=== PATIENT | male | born 1940 | race Caucasian/White ===

== ENCOUNTER 2018-02-07 14:50 | Emergency (ER) ==
[2018-02-07 14:56] VITALS: BP 167/78; TEMP 97.9; BMI 27.3
--- NOTE | 2018-02-07 15:13 | ED.PDOC ---
Medical Screening Exam - General Information Time Seen by Physician*: 03:05 Mode of Arrival: Walk-In Information Source: Patient - History Chief Complaint: Non-specific Complaint Stated Complaint: i am here to get ultrasound of my neck Severity: None - Review Of Systems Constitutional: None Respiratory: Reports: None GI: Reports: None : Reports: None Musculoskeletal: Reports: None Neuro: Reports: None - Past Medical History Past Medical History: Previously healthy - Examination Findings Visit Related to : No - Medical Decision Making Emergency Medical Condition: No Physical Exam - Physical Exam Appearance: Well-appearing, No pain distress, Well-nourished Ill-appearing: None Pain Distress: None Eyes: SANDEEP, EOMI, Conjunctiva clear (recent floaters in eyes but no pain, evaluated by PCP and Opto) ENT: Ears normal, Nose normal, Oropharynx normal Neck: Supple Respiratory: Airway patent, Breath sounds clear, Breath sounds equal, Respirations nonlabored Cardiovascular: RRR, Pulses normal, No rub, No murmur GI/: Soft, Nontender, No masses, Bowel sounds normal, No Organomegaly Musculoskeletal: Normal strength, ROM intact, No edema, No calf tenderness Skin: Warm, Dry, Normal color Neurological: Sensation intact, Motor intact, Reflexes intact, Cranial nerves intact, Alert, Oriented Interpretation - Radiology Interpretation Radiology Results: Negative Re-Evaluation - Re-Evaluation Time of Re-Evaluation: 16:00 Status: Unchanged Vital Signs Stable: Yes Appearance: NAD Lungs: Clear Skin: Warm and Dry Neuro: Alert and Oriented X3 CV: RRR Critical Care Note - Critical Care Note Total Time (mins): 0 Course - Course Orders, Labs, Meds: Orders Category Date Time Status ULTRASOUND DOPPLER CAROTID [U/S DOPPLER CAROTID] Stat RADS 02/07/18 15:13 Completed Vital Signs: Temp Pulse Resp BP Pulse Ox 02/07/18 14:51 97.9 F 72 16 167/78 H 94 L Departure - Departure Time of Disposition: 16:25 Disposition: HOME SELF-CARE Discharge Problem: Floaters Qualifiers: Laterality: bilateral Qualified Code(s): H43.393 - Other vitreous opacities, bilateral Condition: Good Pt referred to PMD for follow-up: Yes IPMP verified?: No Allergies/Adverse Reactions: Allergies No Known Allergies Allergy (Unverified 02/07/18 14:56) Home Medications: Ambulatory Orders Albuterol Sulfate [Proair Hfa] 2 puff IH Q6H 02/07/18 Aspirin [Aspirin EC] 81 mg PO DAILY 02/07/18 Atorvastatin Calcium 80 mg PO BEDTIME 02/07/18 Clonazepam 0.5 mg PO PRN PRN 02/07/18 Furosemide [Lasix] 40 mg PO BID 02/07/18 Hydrocodone/Acetaminophen [Hydrocodon-Acetaminoph 7.5-325] 1 each PO PRN PRN Ipratropium [place] [Atrovent Hfa] 2 puff IH QID 02/07/18 Isosorbide Mononitrate [Isosorbide Mononitrate ER] 60 mg PO DAILY 02/07/18 Metformin HCl 2 tab PO BEDTIME 02/07/18 Metoprolol Tartrate [Lopressor] 100 mg PO DAILY 02/07/18 Pantoprazole Sodium 40 mg PO BID 02/07/18 Potassium Chloride [K-Dur] 20 meq PO DAILY 02/07/18 Warfarin Sodium 2 mg PO EVERY OTHER DAY 02/07/18 Warfarin Sodium 3 mg PO EVERY OTHER DAY 02/07/18
--- NOTE | 2018-02-07 16:07 | US ---
EXAM: Ultrasound bilateral carotid duplex. HISTORY: Visual changes, floaters. Reported known severe carotid artery stenosis. COMPARISON: None available. TECHNIQUE: Multiple sanchez scale and color Doppler images were obtained. FINDINGS: Please note that estimates of internal carotid artery stenoses are based upon NASCET crite michelle. Right carotid: Calcified plaquing present in the carotid bulb extending into the internal carotid ar marilyn which causes at least 50% stenosis. Peak systolic velocity measurement in the right internal ca rotid artery is 3.7 meters per second. Right internal to common carotid artery peak systolic velocit y ratio measures 6.1. End diastolic velocity measurement in the right internal carotid artery is 1.0 meters per second. Flow in the right vertebral artery is antegrade. Left carotid: Calcified plaquing present, greatest in the carotid bulb extending into the proximal i nternal carotid artery causing at least 50% stenosis. Peak systolic velocity measurement in the left internal carotid artery is 2.2 meters per second. Left internal to common carotid artery peak systo lic velocity ratio measures 2.8. End diastolic velocity measurement in the left internal carotid art sally measures 0.5 meters per second. Flow in the left vertebral artery is not identified. IMPRESSION: 1. Velocity measurements suggest severe, 70% or greater, right internal carotid artery stenosis. 2. Velocity measurements suggest moderate, 50-69%, left internal carotid artery stenosis. 3. Nonvisualized left vertebral artery could be technical. Stenosis or occlusion of the left verteb ral artery is not excluded. 4. Antegrade flow in the right vertebral artery.
== END 2018-02-07 16:35 | disposition home or self-care (01) ==
LOC: ED 14:50
DX: H43.393 Other vitreous opacities, bilateral (principal)
CPT/HCPCS: 99283

== ENCOUNTER 2018-02-12 06:51 | Outpatient (CLI) ==
--- NOTE | 2018-02-12 10:44 | CT ---
EXAM: CTA of the neck with and without contrast History: Bilateral carotid stenosis. Comparison: Carotid Doppler 02/07/2018 Technique: Multiplanar CT images through the bilateral internal carotid arteries were obtained. Col or duplex Doppler was used to interrogate vascular flow. MIP images and 3-D reconstructions were also acquired. Findings: The visualized upper lungs are free of consolidation. Calcified granulomas are seen within the mediastinum. No parotid inflammation or parotid masses. Submandibular glands are not inflamed. No air-fluid levels are seen within the sinuses or mastoid air cells. No acute osseous abnormaliti es. Degenerative changes of the cervical spine. Epiglottis is not thickened. No prevertebral soft tissue swelling. The visualized intracranial contents demonstrate no acute findings. The right vertebral artery is lar kalani than the left which is most likely a normal variant. There is atherosclerotic plaque seen involv ing both vertebral arteries but no severe stenosis is identified. There is mild to moderate plaque bu ildup within both subclavian arteries but no severe stenosis. Mild to moderate plaque buildup within both common carotid arteries but no significant stenosis. Within left carotid bifurcation and carotid bulb, there is significant calcific plaque buildup which moderate to severely narrows the proximal left internal carotid artery up to at least 80%. The more d istal left internal carotid artery is only mildly narrowed with calcific plaque. In the right carotid bifurcation and proximal right internal carotid artery, there is moderate calcif ic plaque buildup causing about 60% narrowing. The more distal right internal carotid artery is only mildly narrowed with calcific plaque. Impression: 1. Moderate to severe stenosis of the proximal left internal carotid artery. 2. Moderate stenosis of the proximal right internal carotid artery.
== END 2018-02-12 06:52 | disposition home or self-care (01) ==
LOC: RAD 06:51
PROVIDERS: ATTEND Internal Medicine
DX: G45.9 Transient cerebral ischemic attack, unspecified (principal); I65.29 Occlusion and stenosis of unspecified carotid artery
CPT/HCPCS: 36415; 82565

== ENCOUNTER 2023-06-24 14:36 | Inpatient (IN) ==
[2023-06-24 15:15] VITALS: BMI 23.6
[2023-06-24] MEDS ORDERED: TYLENOL PO PRN (15:49)
[2023-06-24] MEDS ORDERED: NITROSTAT SL PRN (15:49)
[2023-06-24] MEDS ORDERED: ATROPINE SULFATE PFS IVP PRN (15:49)
[2023-06-24] MEDS ORDERED: LASIX IVP ONE (15:51)
[2023-06-24] MEDS ORDERED: ULTRAM PO PRN (15:58)
[2023-06-24] MEDS ORDERED: VENTOLIN HFA IH SCH (16:00)
[2023-06-24] MEDS ORDERED: NON-FORMULARY MEDICATION (Ferrous Sulfate 325 mg (65 mg iron) tablet) PO SCH (16:00)
[2023-06-24 16:18] LABS: ALANINE AMINOTRANSFERASE 57.7 U/L (0-50); ALBUMIN 3.86 g/dL (3.5-5.0); ASPARTATE AMINO TRANSFERASE 42.4 U/L (17-59); BILIRUBIN,TOTAL 1.25 mg/dL (0.2-1.3); BLOOD UREA NITROGEN 25.6 mg/dL (9-20); CALCIUM 8.31 mg/dL (8.4-10.2); CHLORIDE 96.2 mmol/L (98-107); CREATININE 1.4 mg/dL (0.60-1.10); GLUCOSE 141.9 mg/dL (74-106); POTASSIUM 2.98 mmol/L (3.5-5.1); SODIUM 134.1 mmol/L (134.5-145); TOTAL PROTEIN 7.11 g/dL (6.3-8.2)
[2023-06-24 16:28] LABS: BASOPHILS # (AUTO) 0.1 K/uL (0-0.2); EOSINOPHILS # (AUTO) 0.1 K/ul (0.0-0.7); EOSINOPHILS % (AUTO) 1.9 % (0.0-7.0); HEMATOCRIT 32.1 % (42.0-52.0); HEMOGLOBIN 9.6 g/dl (14.0-18.0); IMMATURE GRANULOCYTE % (AUTO) 0.2 % (0.0-5.0); LYMPHOCYTES # (AUTO) 1.2 K/uL (0.60-3.4); LYMPHOCYTES % (AUTO) 21.1 (10.0-50.0); MEAN CORPUSCULAR HEMOGLOBIN 24.5 pg (27.0-31.0); MEAN CORPUSCULAR HGB CONC 29.9 (31.8-35.4); MEAN CORPUSCULAR VOLUME 81.9 fl (80.0-94.0); MONOCYTES # (AUTO) 0.9 K/uL (0.4-2.0); MONOCYTES % (AUTO) 14.8 (0-10); NEUTROPHILS # (AUTO) 3.6 K/ul (2.0-6.9); PLATELET COUNT 181 10^3/uL (140-440); RDW COEFFICIENT OF VARIATION 21.6 % (11.6-14.8); RED BLOOD COUNT 3.92 10^6/ul (4.70-6.10); WHITE BLOOD COUNT 5.87 K/ul (4.2-10.2)
[2023-06-24] MEDS: ROCEPHIN 1 GM/50 ML D5W 1 GM/50 ML BAG IV SCH (16:58)
--- NOTE | 2023-06-24 16:58 | DI ---
EXAM: CHEST RADIOGRAPH TECHNIQUE: Single frontal chest radiograph. HISTORY: Dyspnea COMPARISON: 04/03/2022 FINDINGS: The lungs are clear. Cardiomegaly. Midline sternotomy. Left-sided pacemaker. IMPRESSION: 1. Cardiomegaly, no acute disease
[2023-06-24] MEDS ORDERED: ATROVENT HFA INHALER IH SCH (17:00)
[2023-06-24] MEDS ORDERED: K-DUR PO STA (17:01)
[2023-06-24 17:10] LABS: BILIRUBIN,URINE Negative (NEGATIVE); CLARITY,URINE Clear (CLEAR); COLOR,URINE Yellow (YELLOW); GLUCOSE, URINE (UA) Negative (NEGATIVE); KETONES,URINE Negative (NEGATIVE); LEUKOCYTE ESTERASE ,URINE Negative (NEGATIVE); NITRITE,URINE Negative (NEGATIVE); PH,URINE 6.5 (5-9); PROTEIN,URINE Negative (NEGATIVE); URINE, BLOOD Negative (NEGATIVE); UROBILINOGEN,URINE 0.2 (0.2)
[2023-06-24] MEDS ORDERED: VENTOLIN HFA IH PRN (17:10)
[2023-06-24] MEDS: PROTONIX PO SCH (17:13)
[2023-06-24] MEDS ORDERED: NORCO 7.5-325 ONE (17:18)
[2023-06-24] MEDS ORDERED: K-DUR ONE (17:21)
[2023-06-24] MEDS ORDERED: ATROVENT HFA INHALER IH PRN (18:33)
[2023-06-24] MEDS: DOXY-100 100 MG in SODIUM CHLORIDE 100ML 100 ML IV SCH (20:22)
[2023-06-24] MEDS: KLONOPIN PO SCH (20:23)
[2023-06-24] MEDS: LIPITOR PO SCH (20:24)
[2023-06-24] MEDS: ELIQUIS PO SCH (20:24)
[2023-06-24] MEDS: BACTROBAN TP SCH (20:25)
[2023-06-24] MEDS ORDERED: NORCO 7.5-325 PO SCH (21:00)
[2023-06-24] MEDS ORDERED: K-DUR PO ONE (21:00)
[2023-06-25 05:38] LABS: BASOPHILS % (AUTO) 0.8 % (0.0-3.0); EOSINOPHILS # (AUTO) 0.2 K/ul (0.0-0.7); EOSINOPHILS % (AUTO) 3.7 % (0.0-7.0); HEMATOCRIT 29.6 % (42.0-52.0); HEMOGLOBIN 8.8 g/dl (14.0-18.0); IMMATURE GRANULOCYTE % (AUTO) 0.2 % (0.0-5.0); LYMPHOCYTES # (AUTO) 1.1 K/uL (0.60-3.4); LYMPHOCYTES % (AUTO) 21.5 (10.0-50.0); MEAN CORPUSCULAR HEMOGLOBIN 24.1 pg (27.0-31.0); MEAN CORPUSCULAR HGB CONC 29.7 (31.8-35.4); MEAN CORPUSCULAR VOLUME 81.1 fl (80.0-94.0); MONOCYTES # (AUTO) 0.9 K/uL (0.4-2.0); MONOCYTES % (AUTO) 18.1 (0-10); NEUTROPHILS # (AUTO) 2.9 K/ul (2.0-6.9); NEUTROPHILS % (AUTO) 55.7 % (42.2-75.2); PLATELET COUNT 151 10^3/uL (140-440); RDW COEFFICIENT OF VARIATION 21.4 % (11.6-14.8); RED BLOOD COUNT 3.65 10^6/ul (4.70-6.10)
[2023-06-25 05:50] LABS: ALANINE AMINOTRANSFERASE 50.5 U/L (0-50); ALBUMIN 3.33 g/dL (3.5-5.0); ALKALINE PHOSPHATASE 130.7 U/L (56-119); ASPARTATE AMINO TRANSFERASE 43.6 U/L (17-59); BILIRUBIN,TOTAL 0.93 mg/dL (0.2-1.3); BLOOD UREA NITROGEN 25.6 mg/dL (9-20); CALCIUM 8.09 mg/dL (8.4-10.2); CHLORIDE 99.3 mmol/L (98-107); CREATININE 1.49 mg/dL (0.60-1.10); GLUCOSE 135.1 mg/dL (74-106); POTASSIUM 3.72 mmol/L (3.5-5.1); SODIUM 136.4 mmol/L (134.5-145); TOTAL PROTEIN 6.22 g/dL (6.3-8.2)
[2023-06-25] MEDS: PROTONIX PO SCH ×2 (05:57→17:31)
[2023-06-25] MEDS ORDERED: K-DUR PO SCH ×2 (08:00→08:30)
[2023-06-25] MEDS: ZESTRIL PO SCH (08:21)
[2023-06-25] MEDS: TOPROL XL PO SCH (08:21)
[2023-06-25] MEDS: K-DUR PO SCH (08:21)
[2023-06-25] MEDS: IMDUR PO SCH (08:21)
[2023-06-25] MEDS: ELIQUIS PO SCH ×2 (08:22→21:10)
[2023-06-25] MEDS: ROCEPHIN 1 GM/50 ML D5W 1 GM/50 ML BAG IV SCH (08:22)
[2023-06-25] MEDS: FERROUS SULFATE PO SCH ×2 (08:22→21:09)
--- NOTE | 2023-06-25 08:37 | PCM.PROG ---
Attending Provider: ATTENDING PROVIDER: Dr. ТАТЬЯНА ANN MD This patient is seen with Moraima Wilkins, Nurse Practitioner. DATE OF SERVICE: 06/25/23 SUBJECTIVE: This 82 year old /WHITE M was hospitalized 06/24/23.Leg edema slightly improved, worsened area of redness on feet. Labs showed Potassium has improved to 3.7, Hgb down to 8.8. He has chronic anemia. REVIEW OF SYSTEMS: CONSTITUTIONAL: No night sweats. No fatigue, malaise, lethargy. No fever or chills. Weakness. HEENT: Eyes: No visual changes. No eye pain. No eye discharge. ENT: No runny nose. No epistaxis. No sinus pain. No odynophagia. No congestion. RESPIRATORY: No cough, no congestion. No hemoptysis. No shortness of breath. CARDIOVASCULAR: No angina symptoms. No CHF symptoms. No atypical chest pain for CAD. No palpitations. No orthopnea.. GASTROINTESTINAL: No abdominal pain. No nausea or vomiting. No diarrhea or constipation. No hematemesis. No hematochezia. GENITOURINARY: No urgency. No frequency. No dysuria. No hematuria. No obstructive symptoms. No discharge. No pain. No significant abnormal bleeding. MUSCULOSKELETAL: No musculoskeletal pain; no joint swelling. Leg edema. NEUROLOGICAL: Awake, alert, oriented to time, place and person. No headache. No neck pain. No syncope. No seizures. No dizziness. PSYCHIATRIC: Not anxious. No depression. No suicidal thoughts. No homicidal thoughts. SKIN: No rash. No lesions. No wounds. Pallor. Foot ulcers. ENDOCRINE: No unexplained weight loss. No weight gain. HEMATOLOGIC/LYMPHATIC: No anemia. No purpura. No petechiae. No prolonged or excessive bleeding. No palpable lymph nodes. PHYSICAL EXAMINATION: GENERAL: The patient is awake, alert and oriented, lying in bed in no distress. VITAL SIGNS: Temperature 97.6 F, Pulse 60, Respiratory Rate 16, BP 117/62, Pulse Ox 99% HEENT: Head normocephalic, atraumatic. Eyes: Extraocular muscles are intact. Pupils are equal, round and reactive to light and accommodation. Ears: No lesions. Nose appeared normal. Throat: No exudate or erythema. NECK: Supple. No JVD, no carotid bruit. No lymphadenopathy or thyromegaly. LUNGS: Diminished breath sounds. Clear to auscultation. Percussion note normal. Chest symmetrical. HEART: Irregular heart rate. S1, S2, no S3. No murmurs. No cyanosis or clubbing. No ascites. Pulses: Dorsalis pedis and posterior tibial pulses +1 to +2 both sides. ABDOMEN: Soft. Non-tender. Bowel sounds active. No CVA tenderness. No mass felt. EXTREMITIES: +1 edema left lower extremity. Trace right lower extremity edema. Full range of motion of all extremities, equal. NEUROLOGIC: No focal deficit. Cranial nerves II through XII are grossly intact. No headache. No double vision. SKIN: Not dry. Intact. Turgor-normal. Pale. Multiple open areas to both feet with minimal surround erythema and clear drainge. LYMPHATIC: No palpable lymph nodes/no lymphedema. MUSCULOSKELETAL: Normal joints with no swelling. Muscle tone is normal. LAB REVIEW: 06/25/23 05:11 06/25/23 05:11 06/25/23 05:11: WBC 5.20, RBC 3.65 L, Hgb 8.8 L, Hct 29.6 L, MCV 81.1, MCH 24.1 L, MCHC 29.7 L, RDW Coeff of Janet 21.4 H, Plt Count 151, Immature Gran % (Auto) 0.2, Neut % (Auto) 55.7, Lymph % (Auto) 21.5, [place] % (Auto) 18.1 H, Eos % (Auto) 3.7, Baso % (Auto) 0.8, Neut # (Auto) 2.9, Lymph # (Auto) 1.1, [place] # (Auto) 0.9, Eos # (Auto) 0.2, Baso # (Auto) 0.0, Immature Gran # (Auto) 0.0, Sodium 136.4, Potassium 3.72, Chloride 99.3, Carbon Dioxide 31.0 H, Anion Gap 9.82, BUN 25.6 H, Creatinine 1.49 H, Estimated GFR (MDRD) 45.00, BUN/Creatinine Ratio 17.18, Glucose 135.1 H, Calcium 8.09 L, Total Bilirubin 0.93, AST 43.6, ALT 50.5 H, Alkaline Phosphatase 130.7 H, Total Protein 6.22 L, Albumin 3.33 L, Globulin 2.89, Albumin/Globulin Ratio 1.15 06/24/23 16:26: Urine Color Yellow, Urine Clarity Clear, Urine pH 6.5, Ur Specific [place] 1.010, Urine Protein Negative, Urine Glucose (UA) Negative, Urine Ketones Negative, Urine Blood Negative, Urine Nitrite Negative, Urine Bilirubin Negative, Urine Urobilinogen 0.2, Ur Leukocyte Esterase Negative 06/24/23 16:03: WBC 5.87, RBC 3.92 L, Hgb 9.6 L, Hct 32.1 L, MCV 81.9, MCH 24.5 L, MCHC 29.9 L, RDW Coeff of Janet 21.6 H, Plt Count 181, Immature Gran % (Auto) 0.2, Neut % (Auto) 61.0, Lymph % (Auto) 21.1, [place] % (Auto) 14.8 H, Eos % (Auto) 1.9, Baso % (Auto) 1.0, Neut # (Auto) 3.6, Lymph # (Auto) 1.2, [place] # (Auto) 0.9, Eos # (Auto) 0.1, Baso # (Auto) 0.1, Immature Gran # (Auto) 0.0, Sodium 134.1 L, Potassium 2.98 L, Chloride 96.2 L, Carbon Dioxide 29.0, Anion Gap 11.88, BUN 25.6 H, Creatinine 1.40 H, Estimated GFR (MDRD) 49.00, BUN/Creatinine Ratio 18.28, Glucose 141.9 H, Calcium 8.31 L, Total Bilirubin 1.25, AST 42.4, ALT 57.7 H, Alkaline Phosphatase 133.0 H, Total Protein 7.11, Albumin 3.86, Globulin 3.25, Albumin/Globulin Ratio 1.18 ASSESSMENT: Please see below. 1. Bilateral leg edema 2. Bilateral lower extremity cellulitis 3. Anemia 4. Chronic kidney disease stage 3 5. Hypokalemia, improved PLAN: 1. Lasix 40mg daily PO starting tomorrow 2. Hold Lasix today 3. Potassium 20meq daily 4. Keep legs elevated 5. Continue IV antibiotics 6. Wound cultures, pending. Plan and coordination of the patient's care discussed in the presence of Home Mortgage Disclosure Act Specialist and nurse. SCRIBED BY: Darius ROSADO scribed while in presence of service performed by Moraima Wilkins APRN on 06/25/23 ([id number])
[2023-06-25] MEDS: BACTROBAN TP SCH ×2 (08:38→21:19)
[2023-06-25] MEDS ORDERED: FERROUS SULFATE PO SCH (09:00)
[2023-06-25] MEDS: DOXY-100 100 MG in SODIUM CHLORIDE 100ML 100 ML IV SCH ×2 (09:26→21:14)
--- NOTE | 2023-06-25 11:15 | RS.PTINEVL ---
Subjective Patient information Date of Evaluation: 06/25/23 Date of Arrival on Unit: 06/24/23 Admitted From:: Home Diagnosis: Cellulitis, edema BLE, difficulty walking, Usual Living Arrangement: Alone Home Environment: House, Stairs (few) (3 steps to enter) and Rail Medical History: CVA/TIA (TIA), Diabetes and Arthritis Medical History Comments:: CKD, AFib, LATEX ALLERGY?: No Surgical History: CABG Surgical History Comments:: pacemaker Medications: see chart Subjective Information/ Patient Comments:: pt states that he is hurting in his feet due to blisters and edema. pt reports he wants to try to walk to the bathroom. 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 pt was independent taking care of his house and himself. Current Level of Function: Partially Dependent Current Equipment Used at Home: wheelchair, shower chair Pain Assessement Location B feet : Description: Burning, Sharp and Acute Pain Behavior: Facial Grimacing Pain Aggravating Factors: Changing Position, Standing and Walking Pain Alleviating Factors: Position Change Interventions Objective Patient Orientation: Person, Place, Time and Situation Current Interventions: IV's and Telemetry Observation: pt with multiple blisters some intact some open B feet as well as pitting edema BLE. Range of Motion ROM Right Upper Extremity AROM: WFL's Left Upper Extremity AROM: WFL's Right Lower Extremity AROM: Slight limitation (slight limitation with ankle ROM due to pain.) Left Lower Extremity AROM: Slight limitation (slight limitation in ankle ROM due to edema and pain) Muscle Strength Muscle Strength Right Upper Extremity: Mild Weakness (grossly 4/5) Left Upper Extremity: Mild Weakness (grossly 4/5 ) Right Lower Extremity: Mild Weakness (hip flex 4/5, knee flex/ext 4/5, ankle DF/PF 4-/5) Left Lower Extremity: Mild Weakness (hip flex 4/5, knee flex/ext 4/5, ankle DF/PF 4-/5) Sensation Sensation Right Upper Extremity: Intact/Normal Left Upper Extremity: Intact/Normal Right Lower Extremity: Intact/Normal Left Lower Extremity: Intact/Normal Palpation Palpation Findings: None/Normal Balance Sitting Balance and Reactions Static Sitting Balance: Good Dynamic Sitting Balance: Good Standing Balance and Reactions Static Standing Balance: Poor Dynamic Standing Balance: Poor Comments Balance Assessment Comments: pt stands and amb with flexed knees due to pain in B feet. Functional Mobility Bed Mobility Rolling R/L: Independent Supine to Sit: Supervision Sit to Supine: Supervision Transfers Sit to Stand: Min Assist Stand to Sit: CGA Safety Awareness Safety Awareness: Fair JEANNETTE INDEX SCORE: n/a Ambulation Ambulation Weight Bearing Status: WBAT Assistive Device Used: Rolling Walker Orthotic/Prosthetic Device: No Distance: 14ft x 2 Assistance needed with Ambulation: CGA and Min Assist Gait Deviations: Step-to gait, Forward posture and Short stride Ambulation Comments: flexed knees Factors Affecting Ambulation: Decreased Balance, Pain, Weakness, Decreased ROM, Decreased Safety and Limited Endurance Treatment time Units charged ADL: 1 (ther act ) Time with patient Length of Evaluation: 19 Total treatment time: 29 Patient Education Education Patient Education: Activity Modification and Education of Plan of Care Teaching Recipient: Patient Teaching Methods: Discussion (discussion regarding POC as well as safety with amb.) Assessment Assessment Problem List:: Decreased level of function, Requires training/education, Decreased safety/Risk of falls, Weakness and Pain limits previous level of function Rehab Potential: Good Further Therapy Indicated?: Yes Candidate for Swing Bed for Therapy Services?: Feel pt may be at a higher functional level soon, limited mostly due to wounds on feet. Evaluation Complexity: HISTORY: Medium, EXAM OF BODY SYSTEMS: Medium, CLINICAL PRESENTATION: Medium and CLINICAL DECISION MAKING: Medium Patient's Goal(s): The wounds on my legs to heal and to go home. Short Term Goals GOAL #1: pt demonstrate rolling and scooting in bed independently. Goal to be met by: 06/27/23 GOAL #2: Transfer sup to/from sit independently Goal to be met by: 06/27/23 GOAL #3: Transfer sit to/from stand SBA Goal to be met by: 06/27/23 GOAL #4: pt amb with rwx 50ft with CGA no LOB. Goal to be met by: 06/27/23 GOAL #5: Improve BLE strength 4+/5 Goal to be met by: 06/27/23 Fdc Goals GOAL #1: pt independent sit to/from stand independently. Goal to be met by: 06/29/23 GOAL #2: pt amb functional household distances with rolling walker independently. Goal to be met by: 06/29/23 GOAL #3: Improve dyn stand balance fair Goal to be met by: 06/29/23 Plan Plan of Care: Therapeutic EX and Therapeutic Activity Other:: gait training Frequency of Treatment: 1-2 X day, as tolerated Duration of Treatment: 4-5 days Anticipated Discharge Destination: Home Treatment Diagnosis (ICD 10 Codes): BLE edema gait difficulty R 26.2 impaired balance R 26.81 weakness M62.81 Has the Physician been added for Co-signature?: Yes
[2023-06-25] MEDS: LIPITOR PO SCH (21:08)
[2023-06-25] MEDS: KLONOPIN PO SCH (21:09)
[2023-06-25] MEDS: NORCO 7.5-325 PO PRN (21:43)
[2023-06-26 05:13] LABS: BASOPHILS % (AUTO) 0.5 % (0.0-3.0); EOSINOPHILS # (AUTO) 0.1 K/ul (0.0-0.7); EOSINOPHILS % (AUTO) 1.9 % (0.0-7.0); HEMATOCRIT 27.6 % (42.0-52.0); HEMOGLOBIN 8.3 g/dl (14.0-18.0); IMMATURE GRANULOCYTE % (AUTO) 0.2 % (0.0-5.0); LYMPHOCYTES # (AUTO) 1.4 K/uL (0.60-3.4); LYMPHOCYTES % (AUTO) 22.7 (10.0-50.0); MEAN CORPUSCULAR HEMOGLOBIN 24.6 pg (27.0-31.0); MEAN CORPUSCULAR HGB CONC 30.1 (31.8-35.4); MEAN CORPUSCULAR VOLUME 81.7 fl (80.0-94.0); MONOCYTES % (AUTO) 15.6 (0-10); NEUTROPHILS # (AUTO) 3.7 K/ul (2.0-6.9); NEUTROPHILS % (AUTO) 59.1 % (42.2-75.2); PLATELET COUNT 165 10^3/uL (140-440); RDW COEFFICIENT OF VARIATION 21.2 % (11.6-14.8); RED BLOOD COUNT 3.38 10^6/ul (4.70-6.10); WHITE BLOOD COUNT 6.33 K/ul (4.2-10.2)
[2023-06-26] MEDS: LASIX TAB PO SCH (05:51)
[2023-06-26 06:00] LABS: ALANINE AMINOTRANSFERASE 43.2 U/L (0-50); ALBUMIN 3.19 g/dL (3.5-5.0); ALKALINE PHOSPHATASE 127.3 U/L (56-119); BILIRUBIN,TOTAL 1.07 mg/dL (0.2-1.3); BLOOD UREA NITROGEN 31.2 mg/dL (9-20); CALCIUM 8.31 mg/dL (8.4-10.2); CARBON DIOXIDE 27.7 mmol/L (22-30.0); CHLORIDE 99.4 mmol/L (98-107); CREATININE 1.72 mg/dL (0.60-1.10); GLUCOSE 112.6 mg/dL (74-106); POTASSIUM 4.46 mmol/L (3.5-5.1); SODIUM 132.7 mmol/L (134.5-145); TOTAL PROTEIN 5.98 g/dL (6.3-8.2)
[2023-06-26] MEDS: PROTONIX PO SCH ×2 (06:00→17:25)
[2023-06-26] MEDS: IMDUR PO SCH (08:16)
[2023-06-26] MEDS: BACTROBAN TP SCH ×2 (08:16→20:51)
[2023-06-26] MEDS: ROCEPHIN 1 GM/50 ML D5W 1 GM/50 ML BAG IV SCH (08:16)
[2023-06-26] MEDS: ELIQUIS PO SCH ×2 (08:17→20:39)
[2023-06-26] MEDS: K-DUR PO SCH (08:17)
[2023-06-26] MEDS: FERROUS SULFATE PO SCH ×2 (08:17→20:38)
[2023-06-26] MEDS: NORCO 7.5-325 PO PRN ×2 (08:18→20:56)
[2023-06-26] MEDS: ZESTRIL PO SCH (08:18)
[2023-06-26] MEDS: TOPROL XL PO SCH (08:18)
[2023-06-26] MEDS: DOXY-100 100 MG in SODIUM CHLORIDE 100ML 100 ML IV SCH ×2 (08:57→20:43)
[2023-06-26] MEDS ORDERED: DECADRON IM ONE (12:32)
--- NOTE | 2023-06-26 14:19 | PN ---
DATE OF SERVICE: 06/25/23 SUBJECTIVE: The patient was seen and examined with the Nurse Practitioner. The patient's condition seems to be improving, less redness on the left foot. Blisters have all collapsed and trying to dry up. Edema is much less. Cardiovascular status is stable. l TIME SPENT: More than 35 minutes. Plan and coordination of the patient's care discussed in the presence of nurse. ELROY
--- NOTE | 2023-06-26 14:30 | PN ---
DATE OF SERVICE: 06/26/23 SUBJECTIVE: 82 year old white male hospitalized with bilateral leg edema and cellulitis with blisters. The patient's condition seems to be improving. Most of the blisters are collapsed and they are getting dried up. Left foot cellulitis seems to be under control, less than what is was on admission. The patient has arthritis pain in the knees, 1cc Decadron and two Tylenol. REVIEW OF SYSTEMS: CONSTITUTIONAL: No night sweats. No fatigue, malaise, lethargy. No fever or chills. HEENT: Eyes: No visual changes. No eye pain. No eye discharge. ENT: No runny nose. No epistaxis. No sinus pain. No sore throat. No odynophagia. No congestion. RESPIRATORY: No cough, no congestion. No hemoptysis. No shortness of breath. CARDIOVASCULAR: No angina symptoms. No CHF symptoms. No atypical chest pain for CAD. No palpitations. No PND. No orthopnea. GASTROINTESTINAL: No abdominal pain. No nausea or vomiting. No diarrhea or constipation. No hematemesis. No hematochezia. GENITOURINARY: No urgency. No frequency. No dysuria. No hematuria. No obstructive symptoms. No discharge. No pain. No significant abnormal bleeding. MUSCULOSKELETAL: No musculoskeletal pain; no joint swelling. NEUROLOGICAL: No headache. No neck pain. No syncope. No seizures. No dizziness. PSYCHIATRIC: Not anxious. No depression. No suicidal thoughts. No homicidal thoughts. SKIN: No rash. No lesions. No wounds. ENDOCRINE: No unexplained weight loss. No weight gain. HEMATOLOGIC/LYMPHATIC: No anemia. No purpura. No petechiae. No prolonged or excessive bleeding. No palpable lymph nodes. PHYSICAL EXAMINATION: VITAL SIGNS: Temperature 97.7, pulse 82, respiratory rate 16, blood pressure 106/54 and pulse ox 96% HEENT: Head normocephalic, atraumatic. Eyes: Extraocular muscles are intact. Pupils are equal, round and reactive to light and accommodation. Ears: No lesions. Nose appeared normal. Throat: No exudate or erythema. NECK: Supple. No JVD, no carotid bruit. No lymphadenopathy or thyromegaly. LUNGS: Decreased breath sounds but clear to auscultation. Percussion note normal. Chest symmetrical. HEART: S1, S2, no S3. No murmurs. No cyanosis or clubbing. No ascites. Pulses: Dorsalis pedis and posterior tibial pulses +1 to +2 bilaterally. ABDOMEN: Soft. Nontender. Bowel sounds active. No CVA tenderness. No mass felt. EXTREMITIES: No edema. Full range of motion of all extremities, equal. NEUROLOGIC: No focal deficit. Cranial nerves II through XII are grossly intact. No headache. No double vision. SKIN: Not dry. Intact. Turgor - normal. LYMPHATIC: No palpable lymph nodes/no lymphedema. MUSCULOSKELETAL: Normal joints with no swelling. Muscle tone is normal. LABS: Hgb 8.3, hct 27, WBC 6,300 normal differential, creatinine 1.7, BUN 31, potassium 4.4 ASSESSMENT: 1. Left foot cellulitis seems to be improving 2. Blisters with ulcers both seems to be drying up. PLAN: 1. Advised Wound Care in [place] area which he has declined. May have to put him on Wound Care at [place] if he doesn't agree to that then we will talk to him 2. Continue antibiotics 3. Elevate the legs. 4. 1cc Decadron with two Tylenol for arthritis pain in the knee. TIME SPENT: More than 35 minutes. Plan and coordination of the patient's care discussed in the presence of nurse. ELROY
[2023-06-26] MEDS: LIPITOR PO SCH (20:38)
[2023-06-26] MEDS: KLONOPIN PO SCH (20:40)
[2023-06-27] MEDS: LASIX TAB PO SCH (05:57)
[2023-06-27] MEDS: PROTONIX PO SCH ×2 (05:57→17:26)
[2023-06-27 07:09] LABS: BASOPHILS % (AUTO) 0.2 % (0.0-3.0); EOSINOPHILS % (AUTO) 0.3 % (0.0-7.0); HEMATOCRIT 26.9 % (42.0-52.0); HEMOGLOBIN 8.2 g/dl (14.0-18.0); IMMATURE GRANULOCYTE % (AUTO) 0.2 % (0.0-5.0); LYMPHOCYTES # (AUTO) 0.6 K/uL (0.60-3.4); LYMPHOCYTES % (AUTO) 10.1 (10.0-50.0); MEAN CORPUSCULAR HEMOGLOBIN 24.6 pg (27.0-31.0); MEAN CORPUSCULAR HGB CONC 30.5 (31.8-35.4); MEAN CORPUSCULAR VOLUME 80.5 fl (80.0-94.0); MONOCYTES # (AUTO) 0.8 K/uL (0.4-2.0); MONOCYTES % (AUTO) 11.9 (0-10); NEUTROPHILS # (AUTO) 4.9 K/ul (2.0-6.9); NEUTROPHILS % (AUTO) 77.3 % (42.2-75.2); PLATELET COUNT 152 10^3/uL (140-440); RED BLOOD COUNT 3.34 10^6/ul (4.70-6.10); WHITE BLOOD COUNT 6.31 K/ul (4.2-10.2)
[2023-06-27 07:26] LABS: ALANINE AMINOTRANSFERASE 38.2 U/L (0-50); ALBUMIN 3.14 g/dL (3.5-5.0); ALKALINE PHOSPHATASE 130.3 U/L (56-119); ASPARTATE AMINO TRANSFERASE 36.6 U/L (17-59); BILIRUBIN,TOTAL 0.98 mg/dL (0.2-1.3); BLOOD UREA NITROGEN 33.9 mg/dL (9-20); CALCIUM 8.27 mg/dL (8.4-10.2); CREATININE 1.49 mg/dL (0.60-1.10); GLUCOSE 148.1 mg/dL (74-106); POTASSIUM 4.78 mmol/L (3.5-5.1); SODIUM 129.2 mmol/L (134.5-145); TOTAL PROTEIN 5.97 g/dL (6.3-8.2)
[2023-06-27 07:56] LABS: ANISOCYTOSIS 2+ (NOT PRESENT); HYPOCHROMASIA 2+ (NOT PRESENT); MICROCYTOSIS 2+ (NOT PRESENT)
[2023-06-27 07:57] LABS: ACANTHOCYTES 2+ (NOT PRESENT)
[2023-06-27] MEDS: K-DUR PO SCH (08:17)
[2023-06-27] MEDS: IMDUR PO SCH (08:17)
[2023-06-27] MEDS: TOPROL XL PO SCH (08:17)
[2023-06-27] MEDS: BACTROBAN TP SCH ×2 (08:18→20:42)
[2023-06-27] MEDS: FERROUS SULFATE PO SCH ×2 (08:18→20:40)
[2023-06-27] MEDS: ZESTRIL PO SCH (08:18)
[2023-06-27] MEDS: ELIQUIS PO SCH ×2 (08:19→20:40)
[2023-06-27] MEDS: VANCOMYCIN 1.25 GM/250 ML BAG 1.25 GM/250 ML BAG IV SCH (08:27)
--- NOTE | 2023-06-27 08:49 | PCM.PROG ---
Attending Provider: ATTENDING PROVIDER: Dr. ТАТЬЯНА ANN MD This patient is seen with Moraima Wilkins, Nurse Practitioner. DATE OF SERVICE: 06/27/23 SUBJECTIVE: This 82 year old /WHITE M was hospitalized 06/24/23. Swelling of the feet has improved. Still with significant erythema around open areas on both feet. Wound cultures are back and positive for Staph Epidermidis and Staph Haemo lyticus both sensitive to Vancomycin. He is afebrile. He is still in significant pain. Wants to go home but agreed to stay one more day. REVIEW OF SYSTEMS: CONSTITUTIONAL: No night sweats. No fatigue, malaise, lethargy. No fever or chills. HEENT: Eyes: No visual changes. No eye pain. No eye discharge. ENT: No runny nose. No epistaxis. No sinus pain. No odynophagia. No congestion. RESPIRATORY: No cough, no congestion. No hemoptysis. No shortness of breath. CARDIOVASCULAR: No angina symptoms. No CHF symptoms. No atypical chest pain for CAD. No palpitations. No orthopnea.. GASTROINTESTINAL: No abdominal pain. No nausea or vomiting. No diarrhea or constipation. No hematemesis. No hematochezia. GENITOURINARY: No urgency. No frequency. No dysuria. No hematuria. No obs tructive symptoms. No discharge. No pain. No significant abnormal bleeding. MUSCULOSKELETAL: No musculoskeletal pain; no joint swelling. Leg edema. NEUROLOGICAL: Awake, alert, oriented to time, place and person. No headache. No neck pain. No syncope. No seizures. No dizziness. PSYCHIATRIC: Not anxious. No depression. No suicidal thoughts. No homicidal thoughts. SKIN: No rash. No lesions. No wounds. Foot ulcers. ENDOCRINE: No unexplained weight loss. No weight gain. HEMATOLOGIC/LYMPHATIC: No anemia. No purpura. No petechiae. No prolonged or excessive bleeding. No palpable lymph nodes. PHYSICAL EXAMINATION: GENERAL: The patient is awake, alert and oriented, lying in bed in no distress. VITAL SIGNS: Temperature 97.5 F, Pulse 66, Respiratory Rate 16, BP 105/52, Pulse Ox 99% HEENT: Head normocephalic, atraumatic. Eyes: Extraocular muscles are intact. Pupils are equal, round and reactive to light and accommodation. Ears: No lesions. Nose appeared normal. Throat: No exudate or erythema. NECK: Supple. No JVD, no carotid bruit. No lymphadenopathy or thyromegaly. LUNGS: Diminished breath sounds. Clear to auscultation. Percussion note normal. Chest symmetrical. HEART: irreegular heart rate. S1, S2, no S3. No murmurs. No cyanosis or clubbing. No ascites. Pulses: Dorsalis pedis and posterior tibial pulses +1 to +2 both sides. ABDOMEN: Soft. Non-tender. Bowel sounds active. No CVA tenderness. No mass felt. EXTREMITIES: +1 left lower extremity edema, trace right lower extremity edema. Multiple blisters and open areas with mild surrounding erythema and tenderness to both feet. Full range of motion of all extremities, equal. NEUROLOGIC: No focal deficit. Cranial nerves II through XII are grossly intact. No headache. No double vision. SKIN: Not dry. Intact. Turgor-normal. Pallor. LYMPHATIC: No palpable lymph nodes/no lymphedema. MUSCULOSKELETAL: Normal joints with no swelling. Muscle tone is normal. LAB REVIEW: 06/26/23 04:52 06/27/23 07:04 06/27/23 07:04: Sodium 129.2 L, Potassium 4.78, Chloride 96.0 L, Carbon Dioxide 24.0, Anion Gap 13.98, BUN 33.9 H, Creatinine 1.49 H, Estimated GFR (MDRD) 45.00, BUN/Creatinine Ratio 22.75, Glucose 148.1 H, Calcium 8.27 L, Total Bilirubin 0.98, AST 36.6, ALT 38.2, Alkaline Phosphatase 130.3 H, Total Protein 5.97 L, Albumin 3.14 L, Globulin 2.83, Albumin/Globulin Ratio 1.10 ASSESSMENT: Please see below. 1. Bilateral leg edema 2. Bilateral lower extremity cellulitis 3. Anemia 4. Chronic kidney disease stage 3 5. Hypokalemia, improved PLAN: 1. Discontinue Doxy and Rocephin 2. Discharge home on Bactrim 3. CBC pending today 4. Start Vancomycin Plan and coordination of the patient's care discussed in the presence of Centrifugal Operator and nurse. SCRIBED BY: Darius ROSADO scribed while in presence of service performed by Moraima Wilkins APRN on 06/27/23 ([id number])
--- NOTE | 2023-06-27 15:57 | RS.OTINEVL ---
Subjective Patient information Date of Evaluation: 06/27/23 Date of Arrival on Unit: 06/24/23 Admitted From:: Home Diagnosis: B leg edema and cellulitis PRECAUTIONS: Pt has blisters on the top and sides of his feet. Usual Living Arrangement: Alone Living Arrangement Comments: Pt lives alone in a house. Home Environment: House, Stairs (few) (3 steps to enter) and Rail Medical History: CVA/TIA (TIA), Diabetes and Arthritis Medical History Comments:: CKD, AFib, LATEX ALLERGY?: No Surgical History: CABG Surgical History Comments:: pacemaker Medications: see chart Subjective Information/ Patient Comments:: "I went in for a colonoscopy and an endoscopy and this is what happened. Level of function Prior to this admission, the patient could do the following:: Independent Selfcare, Independent ADL's, Independent Ambulation, Perform Back End Architect/Cooking and Drive Current Level of Function: Partially Dependent Comments: Pt has DMII Current Equipment Used at Home: wheelchair, shower chair, Rollator Pain Assessment Pain Side: bilateral Pain Location Body Site: Foot Pain Aggravating Factors: Changing Position and Standing Pain Alleviating Factors: Medication, Position Change and Lying Supine Interventions Objective Patient Orientation: Person, Place, Time and Situation Current Interventions: IV's Observation: Pt lying in bed with feet elevated with blood blisters on top of foot and on the sides. Interventions ROM Right Upper Extremity AROM: Slight limitation Left Upper Extremity AROM: Slight limitation Comments: Pt has pain in his bilateral shoulder. Strength Right Upper Extremity: Mild Weakness Left Upper Extremity: Mild Weakness Sensation Right Upper Extremity: Intact/Normal Left Upper Extremity: Intact/Normal ADL Skills Self Feeding Self Feeding: Independent Grooming Grooming: [facility] Grooming Set-up: Sitting Bathing Bathing UE: CGA Bathing LE: Mod Assist Bathing Set-up: Bedside Dressing Dressing UE: CGA Dressing LE: Mod Assist Toilet Management Toilet Hygiene: [facility] Toilet Clothing Management: Min Assist Functional Mobility Transfers Sit to Stand: Not Tested Stand Pivot Transfers: Not Tested Ambulation Assistance needed with Ambulation: Not Tested Comments:: Physical therapy reported patient wasn't able to stand yesterday. Safety Awareness Safety Awareness: Fair JEANNETTE INDEX SCORE: . Additional Treatment Performed Time with patient Length of Evaluation: 18 Total treatment time: 10 Activities Would you be interested in leaving your room for activities?: Yes Would you enjoy group activities?: Yes Patient Interests:: Watching Television and Visiting/Socializing Patient Education Patient Education: Education of diagnosis, Home Exercise Program and Education of Plan of Care Teaching Recipient: Patient Teaching Methods: Teach Back Method Used, Discussion and Demonstration Assessment Problem List:: Decreased level of function, Requires training/education, Decreased safety/Risk of falls, Weakness and Pain limits previous level of function Rehab Potential: Good Further Therapy Indicated?: Yes Evaluation Complexity: HISTORY: Medium, EXAM OF BODY SYSTEMS: Medium and CLINICAL DECISION MAKING: Medium Patient's Goal(s): To be able to go home tomorrow. Short Term Goals Goals GOAL 1: Pt to be able to complete functional mobility with AD Independently. Goal to be met by: 06/28/23 GOAL 2: Pt to be independent with AD for home. Goal to be met by: 06/29/23 [facility] Goals GOAL 1: Pt to be I with ADLs. Goal to be met by: 06/28/23 Plan Plan of Care: Therapeutic EX, Therapeutic Activity and Self-Care/Home Management Frequency of Treatment: 1-2 X day, as tolerated Duration of Treatment: One Time Treatment Anticipated Discharge Destination: Home Treatment Diagnosis (ICD 10 Codes): Weakness R53.1 Has the Physician been added for Co-signature?: Yes
[2023-06-27] MEDS: NORCO 7.5-325 PO PRN (19:17)
[2023-06-27] MEDS: KLONOPIN PO SCH (20:39)
[2023-06-27] MEDS: LIPITOR PO SCH (20:40)
[2023-06-28 05:07] LABS: ALBUMIN 2.98 g/dL (3.5-5.0); ALKALINE PHOSPHATASE 127.6 U/L (56-119); ASPARTATE AMINO TRANSFERASE 34.2 U/L (17-59); BILIRUBIN,TOTAL 0.8 mg/dL (0.2-1.3); BLOOD UREA NITROGEN 37.1 mg/dL (9-20); CALCIUM 8.15 mg/dL (8.4-10.2); CARBON DIOXIDE 23.1 mmol/L (22-30.0); CHLORIDE 98.3 mmol/L (98-107); CREATININE 1.6 mg/dL (0.60-1.10); GLUCOSE 110.1 mg/dL (74-106); POTASSIUM 4.7 mmol/L (3.5-5.1); SODIUM 128.1 mmol/L (134.5-145); TOTAL PROTEIN 5.76 g/dL (6.3-8.2)
[2023-06-28 05:13] LABS: BASOPHILS % (AUTO) 0.3 % (0.0-3.0); EOSINOPHILS # (AUTO) 0.1 K/ul (0.0-0.7); EOSINOPHILS % (AUTO) 0.8 % (0.0-7.0); HEMATOCRIT 25.9 % (42.0-52.0); HEMOGLOBIN 7.9 g/dl (14.0-18.0); IMMATURE GRANULOCYTE % (AUTO) 0.2 % (0.0-5.0); LYMPHOCYTES # (AUTO) 1.2 K/uL (0.60-3.4); LYMPHOCYTES % (AUTO) 19.6 (10.0-50.0); MEAN CORPUSCULAR HEMOGLOBIN 24.6 pg (27.0-31.0); MEAN CORPUSCULAR HGB CONC 30.5 (31.8-35.4); MEAN CORPUSCULAR VOLUME 80.7 fl (80.0-94.0); MONOCYTES # (AUTO) 0.8 K/uL (0.4-2.0); MONOCYTES % (AUTO) 13.3 (0-10); NEUTROPHILS # (AUTO) 4.1 K/ul (2.0-6.9); NEUTROPHILS % (AUTO) 65.8 % (42.2-75.2); PLATELET COUNT 161 10^3/uL (140-440); RDW COEFFICIENT OF VARIATION 21.7 % (11.6-14.8); RED BLOOD COUNT 3.21 10^6/ul (4.70-6.10); WHITE BLOOD COUNT 6.24 K/ul (4.2-10.2)
[2023-06-28 05:31] LABS: ANISOCYTOSIS 2+ (NOT PRESENT)
[2023-06-28] MEDS: LASIX TAB PO SCH (05:32)
[2023-06-28] MEDS: PROTONIX PO SCH ×2 (05:33→17:09)
[2023-06-28] MEDS: IMDUR PO SCH (08:28)
[2023-06-28] MEDS: ELIQUIS PO SCH (08:29)
[2023-06-28] MEDS: FERROUS SULFATE PO SCH (08:31)
[2023-06-28] MEDS: K-DUR PO SCH (08:31)
[2023-06-28] MEDS: TOPROL XL PO SCH (08:32)
[2023-06-28] MEDS: ZESTRIL PO SCH (08:32)
[2023-06-28] MEDS: BACTROBAN TP SCH (08:38)
[2023-06-28] MEDS: VANCOMYCIN 1.25 GM/250 ML BAG 1.25 GM/250 ML BAG IV SCH (08:39)
[2023-06-28] MEDS: NORCO 7.5-325 PO PRN (11:19)
[2023-06-28] MEDS ORDERED: SENNA PO PRN (14:39)
[2023-06-28 18:51] VITALS: BP 95/50; RESP 18; TEMP 97.4
[2023-06-28 19:48] LABS: HEMATOCRIT 30.7 % (42.0-52.0); HEMOGLOBIN 9.3 g/dl (14.0-18.0)
[2023-06-28 20:46] VITALS: PULSE 61
--- NOTE | 2023-07-04 10:41 | PN ---
DATE OF SERVICE: 06/27/23 SUBJECTIVE: The patient was seen and examined with the Nurse Practitioner. The patient's condition seems to be improving. The culture grew Staph Haemolyticus so we are going to change antibiotics after Vancomycin. We are going to be put him on Bactrim and discharge him tomorrow. TIME SPENT: More than 35 minutes. Plan and coordination of the patient's care discussed in the presence of nurse. ELROY
--- NOTE | 2023-07-04 10:52 | PN ---
DATE OF SERVICE: 06/28/23 SUBJECTIVE: 82 year old white male hospitalized with leg edema with cellulitis. The patient's cellulitis has improved, left looks better. The blisters have collapsed and dried up practically, redness is much less. The patient is feeling a lot better. He is ready to go home. REVIEW OF SYSTEMS: CONSTITUTIONAL: No night sweats. No fatigue, malaise, lethargy. No fever or chills. HEENT: Eyes: No visual changes. No eye pain. No eye discharge. ENT: No runny nose. No epistaxis. No sinus pain. No sore throat. No odynophagia. No congestion. RESPIRATORY: No cough, no congestion. No hemoptysis. No shortness of breath. CARDIOVASCULAR: No angina symptoms. No CHF symptoms. No atypical chest pain for CAD. No palpitations. No PND. No orthopnea. GASTROINTESTINAL: No abdominal pain. No nausea or vomiting. No diarrhea or constipation. No hematemesis. No hematochezia. GENITOURINARY: No urgency. No frequency. No dysuria. No hematuria. No obstructive symptoms. No discharge. No pain. No significant abnormal bleeding. MUSCULOSKELETAL: No musculoskeletal pain; no joint swelling. NEUROLOGICAL: No headache. No neck pain. No syncope. No seizures. No dizziness. PSYCHIATRIC: Not anxious. No depression. No suicidal thoughts. No homicidal thoughts. SKIN: No rash. No lesions. No wounds. ENDOCRINE: No unexplained weight loss. No weight gain. HEMATOLOGIC/LYMPHATIC: No anemia. No purpura. No petechiae. No prolonged or excessive bleeding. No palpable lymph nodes. PHYSICAL EXAMINATION: VITAL SIGNS: Temperature 97.9, pulse 70, respiratory rate 15, blood pressure 104/60 and pulse ox 97% on room air. HEENT: Head normocephalic, atraumatic. Eyes: Extraocular muscles are intact. Pupils are equal, round and reactive to light and accommodation. Ears: No lesions. Nose appeared normal. Throat: No exudate or erythema. NECK: Supple. No JVD, no carotid bruit. No lymphadenopathy or thyromegaly. LUNGS: Decreased breath sounds but clear to auscultation. Percussion note normal. Chest symmetrical. HEART: S1, S2, no S3. No murmurs. No cyanosis or clubbing. No ascites. Pulses: Dorsalis pedis and posterior tibial pulses +1 to +2 bilaterally. ABDOMEN: Soft. Nontender. Bowel sounds active. No CVA tenderness. No mass felt. EXTREMITIES: No edema. Full range of motion of all extremities, equal. Bilateral ulcers more or less superficial, no evidence of active infection or drainage. Most of the ulcers on both lower extremities have dried up. NEUROLOGIC: No focal deficit. Cranial nerves II through XII are grossly intact. No headache. No double vision. SKIN: Not dry. Intact. Turgor - normal. Looks somewhat pale. LYMPHATIC: No palpable lymph nodes/no lymphedema. MUSCULOSKELETAL: Normal joints with no swelling. Muscle tone is normal. PLAN: 1. Give the patient one unit of packed red cells before discharge. The patient agreed. His creatinine is 1.6, BUN 37, potassium 4.7. The patient was given 1 unit of packed red cells and tolerated well. His hgb was 9.4 at the time of blood tranfusion. CONDITION: Stable. TIME SPENT: More than 35 minutes. Plan and coordination of the patient's care discussed in the presence of nurse. ELROY
== END 2023-06-28 20:20 | disposition home health service (06) | DRG 603 ==
LOC: MEDSURG B 14:36
PROVIDERS: ADMIT Internal Medicine; ATTEND Internal Medicine